=== PATIENT | female | born 1970 | race Caucasian/White ===

== ENCOUNTER → 2016-10-07 | Outpatient (CLI) | payer OTHER ==
[~2016-10-07] MED LIST: ASPITAB PO; B-COTAB18 PO; BUPR-79 PO; BUTA1CAP20; COEN100C7 PO; CYAN1SUB12 PO; DIVA500T59 PO; ETOD-146 PO; FEXO1TAB58 PO; FLUT0.15; GABA-113 PO; MAGN400T6 PO; NARA2.5T2 PO; SPIR25TA PO; TIZA2CAP PO; [UNRECOGNIZED DRUG - CODE] PO
[2016-10-07 17:34] LABS: BASO % 0.5 %; BASO ABS # 0.04 K/uL (0-0.2); COMPLETE YES; EOS % 3.5 %; HEMATOCRIT 39.4 % (37-47); IG% 0.3 %; LYMPH % 30.7 %; MEAN CELL VOLUME 92.1 fL (80-100); MEAN CORPUSCULAR HEMOGLOBIN 31.8 pg (25-34); MEAN CORPUSCULAR HGB CONC 34.5 g/dl (32-36); MEAN PLATELET VOLUME 9.2 fL (7.4-10.4); MONO % 6.9 %; NEUT % 58.1 %; PLATELET COUNT 279 K/uL (130-400); RED BLOOD COUNT 4.28 M/uL (4.2-5.4); WHITE BLOOD COUNT 7.49 K/uL (4.8-10.8)
[2016-10-07 18:07] LABS: ALT/SGPT 25 U/L (12-78); AST/SGOT 18 U/L (15-37); BLOOD UREA NITROGEN 15 mg/dl (7-18); BUN/CREATININE RATIO 16.3 (10-20); CALCIUM 8.9 mg/dl (8.5-10.1); CARBON DIOXIDE 32 mmol/L (21-32); CHLORIDE 99 mmol/L (98-107); CREATININE 0.91 mg/dl (0.60-1.20); GLUCOSE 93 mg/dl (70-99); POTASSIUM 4.5 mmol/L (3.5-5.1); SODIUM 140 mmol/L (136-145)
[2016-10-07 18:11] LABS: ALKALINE PHOSPHATASE 50 U/L (45-117)
== END | disposition home or self-care (01) ==
LOC: C.LAB1850 17:10
PROVIDERS: ATTEND Psychiatry & Neurology Neurology
DX: G43.709 Chronic migraine without aura, not intractable, without status migrainosus (principal)

== ENCOUNTER → 2017-05-18 | Outpatient (CLI) | payer BC, OTHER ==
[~2017-05-18] MED LIST changes: -COEN100C7 PO; -GABA-113 PO; -TIZA2CAP PO
[2017-05-18 16:59] LABS: BASO % 0.4 %; BASO ABS # 0.03 K/uL (0-0.2); COMPLETE YES; EOS % 3.1 %; HEMATOCRIT 41.1 % (37-47); IG% 0.4 %; LYMPH % 35.8 %; LYMPH ABS # 2.62 K/uL (1.2-3.4); MEAN CELL VOLUME 94.5 fL (80-100); MEAN CORPUSCULAR HEMOGLOBIN 31.5 pg (25-34); MEAN CORPUSCULAR HGB CONC 33.3 g/dl (32-36); MEAN PLATELET VOLUME 9.5 fL (7.4-10.4); NEUT % 51.3 %; PLATELET COUNT 332 K/uL (130-400); RED BLOOD COUNT 4.35 M/uL (4.2-5.4); WHITE BLOOD COUNT 7.31 K/uL (4.8-10.8)
[2017-05-18 17:12] LABS: ALT/SGPT 17 U/L (12-78); BLOOD UREA NITROGEN 12 mg/dl (7-18); BUN/CREATININE RATIO 12.3 (10-20); CALCIUM 9.3 mg/dl (8.5-10.1); CARBON DIOXIDE 29 mmol/L (21-32); CHLORIDE 103 mmol/L (98-107); GLUCOSE 95 mg/dl (70-99); POTASSIUM 4.4 mmol/L (3.5-5.1); SODIUM 139 mmol/L (136-145)
[2017-05-18 17:23] LABS: ALKALINE PHOSPHATASE 46 U/L (45-117); AST/SGOT 13 U/L (15-37)
== END | disposition home or self-care (01) ==
LOC: C.LABBFT 15:17
PROVIDERS: ATTEND Psychiatry & Neurology Neurology
DX: G43.909 Migraine, unspecified, not intractable, without status migrainosus (principal)

== ENCOUNTER → 2017-08-08 | Outpatient (CLI) | payer BC, OTHER ==
[2017-08-08 12:50] LABS: CHOLESTEROL/HDL RATIO 2.1
[2017-08-08 12:52] LABS: ESTIMATED AVERAGE GLUCOSE 105 mg/dl; HA1C FLAG Normal (Normal)
== END | disposition home or self-care (01) ==
LOC: C.LABBFT 09:07
PROVIDERS: ATTEND Internal Medicine
DX: Z13.220 Encounter for screening for lipoid disorders (principal)